=== PATIENT | female | born 1935 | race Caucasian/White ===

== ENCOUNTER 2018-08-12 11:45 | Observation (INO) ==
[2018-08-12] MEDS ORDERED: ENOXAPARIN 100 MG/ML SYRINGE SUBCUT STA (12:27)
[2018-08-12] MEDS ORDERED: ASPIRIN 325 MG TABLET PO STA (12:27)
[2018-08-12 13:02] LABS: Basophils # 0.1 10*3/uL (0.0-0.2); Basophils % 0.6 % (0.0-0.8); Eosinophils # 1.1 10*3/uL (0.0-0.87); Eosinophils % 10.4 % (0.00-10.9); Hematocrit 39.6 VOL% (35.7-47.0); Hemoglobin 12.6 GM/DL (12.0-16.0); Immature Granulocytes % 0.3 %; Immature Granulocytes Absolute 0.03 #; Lymphocytes # 1.6 10*3/uL (1.4-4.0); Lymphocytes % 15.1 % (21.3-54.2); Mean Corpuscular HGB Conc 31.8 GM/DL (32-36); Mean Corpuscular Volume 96.6 FL (87-102); Mean Platelet Volume 10.7 FL (9.6-12.0); Monocytes % 9.4 % (1.7-12.7); Neutrophils % 64.2 % (38.7-73.9); Platelet Count 264 T/CUMM (130-400); Red Cell Distribution Width 13.1 % (9.3-17.3); White Blood Count 10.8 T/CUMM (4-12)
[2018-08-12] MEDS ORDERED: FUROSEMIDE 100 MG/10 ML VIAL IV STA (13:23)
[2018-08-12 13:31] LABS: Alanine Aminotransferase 17 U/L (13-56); Albumin 3.6 G/DL (3.4-5.0); Alkaline Phosphatase 73 U/L (45-117); Aspartate Amino Transferase 15 U/L (0-37); Bilirubin,Total < 0.39 MG/DL (0.2-1.0); Blood Urea Nitrogen 15 MG/DL (7-18); Calcium 9.5 MG/DL (8.5-10.1); Glucose 139 MG/DL (74-106); Osmolality,Calculated 281.4 MOS/KG (273-304)
[2018-08-12] MEDS ORDERED: FUROSEMIDE 40 MG/4 ML VIAL ONE (13:33)
[2018-08-12] MEDS ORDERED: GLUCAGON 1 MG VIAL IM PRN (14:18)
[2018-08-12] MEDS ORDERED: ACETAMINOPHEN 325 MG TABLET PO PRN (14:18)
[2018-08-12] MEDS ORDERED: DEXTROSE 10% 250 ML BAG IV PRN (14:18)
[2018-08-12] MEDS ORDERED: LACTULOSE 20 GM/30 ML UDCUP PO PRN (14:18)
[2018-08-12] MEDS ORDERED: ONDANSETRON 4 MG/2 ML VIAL IV PRN (14:18)
[2018-08-12] MEDS ORDERED: POLYETHYLENE GLYCOL POWDER 17 GM PACK PO PRN (14:27)
[2018-08-12 14:49] LABS: Thyroid Stimulating Hormone 2.25 uIU/ml (0.358-3.74)
[2018-08-12 15:35] LABS: Apearance,Urine Slightly Hazy (Clear); Bilirubin,Urine Negative (Negative); Blood, Urine Negative (Negative); Glucose,Urine (UA) Negative (Negative); Hyaline Casts,Urine 7 /LPF (0-3); Ketones,Urine Negative (Negative); Mucus,Urine Occasional /LPF (Occasional); Nitrite,Urine Negative (Negative); Protein,Urine Negative; RBC,Urine 1 /HPF (0-4); Squamous Epithelial Cell,Urine Occasional /HPF (0-10); Urine Color Colorless (Yellow); Urine Specific Gravity 1.004 (1.001-1.035); Urine Urobilinogen < 2.0 EU/DL (0.2-1.0); WBC,Urine 64 /HPF (0-6)
[2018-08-12] MEDS: INSULIN REGULAR 100 UNIT/ML SUBCUT SCH ×2 (16:49→21:26)
[2018-08-12] MEDS: hydrALAZINE 10 MG TABLET PO SCH (21:26)
[2018-08-12] MEDS: MEMANTINE 5 MG TABLET PO SCH (21:26)
[2018-08-12] MEDS: DONEPEZIL 10 MG TABLET PO SCH (21:26)
[2018-08-13 04:50] LABS: Basophils # 0.1 10*3/uL (0.0-0.2); Basophils % 0.6 % (0.0-0.8); Hematocrit 40.8 VOL% (35.7-47.0); Hemoglobin 12.9 GM/DL (12.0-16.0); Immature Granulocytes % 0.3 %; Immature Granulocytes Absolute 0.03 #; Lymphocytes # 2.1 10*3/uL (1.4-4.0); Lymphocytes % 22.6 % (21.3-54.2); Mean Corpuscular HGB Conc 31.6 GM/DL (32-36); Mean Corpuscular Volume 96.9 FL (87-102); Mean Platelet Volume 11.3 FL (9.6-12.0); Monocytes % 10.5 % (1.7-12.7); Platelet Count 269 T/CUMM (130-400); Red Blood Count 4.21 MC/CUMM (3.8-5.5); White Blood Count 9.4 T/CUMM (4-12)
[2018-08-13 05:15] LABS: Eosinophils 15 % (0-10); Hypochromasia 1+; Lymphocytes 22 % (20-55); Platelet Estimate Adequate; Segmented Neutrophils 49 % (50-85); Total Cells Counted 100
[2018-08-13 05:18] LABS: Calcium 9.8 MG/DL (8.5-10.1); Osmolality,Calculated 284.4 MOS/KG (273-304); Risk Ratio 4.07; VLDL CHOLESTEROL 40.4 MG/DL
[2018-08-13] MEDS ORDERED: amLODIPine 5 MG TABLET PO SCH (09:00)
[2018-08-13] MEDS: INSULIN REGULAR 100 UNIT/ML SUBCUT SCH ×4 (09:34→23:05)
[2018-08-13] MEDS: SERTRALINE 50 MG TABLET PO SCH (09:34)
[2018-08-13] MEDS: METOPROLOL SUCCINATE XL 25 MG TABLET PO SCH (09:34)
[2018-08-13] MEDS: PANTOPRAZOLE 40 MG TABLET PO SCH (09:35)
[2018-08-13] MEDS: amLODIPine 10 MG TABLET PO SCH (09:35)
[2018-08-13] MEDS: hydrALAZINE 10 MG TABLET PO SCH ×3 (09:35→23:06)
[2018-08-13] MEDS: VENLAFAXINE 75 MG TABLET PO SCH (09:35)
[2018-08-13] MEDS: ASPIRIN EC 81 MG TABLET PO SCH (09:35)
[2018-08-13] MEDS: LEVOTHYROXINE 50 MCG TABLET PO SCH (09:35)
[2018-08-13] MEDS: ENOXAPARIN 40 MG/0.4 ML SYRINGE SUBCUT SCH (12:20)
[2018-08-13] MEDS: AMOXICILLIN/CLAV 500 MG TABLET PO SCH ×2 (17:25→23:07)
[2018-08-13] MEDS: MEMANTINE 5 MG TABLET PO SCH (23:06)
[2018-08-13] MEDS: DONEPEZIL 10 MG TABLET PO SCH (23:06)
[2018-08-14 04:53] LABS: Basophils # 0.1 10*3/uL (0.0-0.2); Basophils % 0.8 % (0.0-0.8); Eosinophils # 0.8 10*3/uL (0.0-0.87); Eosinophils % 8.6 % (0.00-10.9); Hematocrit 39.8 VOL% (35.7-47.0); Hemoglobin 12.1 GM/DL (12.0-16.0); Immature Granulocytes % 0.5 %; Immature Granulocytes Absolute 0.05 #; Lymphocytes # 2.2 10*3/uL (1.4-4.0); Lymphocytes % 23.5 % (21.3-54.2); Mean Corpuscular HGB Conc 30.4 GM/DL (32-36); Mean Corpuscular Volume 98.8 FL (87-102); Mean Platelet Volume 11.1 FL (9.6-12.0); Monocytes % 10.8 % (1.7-12.7); Neutrophils % 55.8 % (38.7-73.9); Platelet Count 268 T/CUMM (130-400); Red Blood Count 4.03 MC/CUMM (3.8-5.5); Red Cell Distribution Width 12.9 % (9.3-17.3); White Blood Count 9.3 T/CUMM (4-12)
[2018-08-14 05:24] LABS: Calcium 9.6 MG/DL (8.5-10.1); Osmolality,Calculated 286.3 MOS/KG (273-304)
[2018-08-14] MEDS: LEVOTHYROXINE 50 MCG TABLET PO SCH (06:48)
[2018-08-14] MEDS: INSULIN REGULAR 100 UNIT/ML SUBCUT SCH ×2 (09:18→12:25)
[2018-08-14] MEDS: ENOXAPARIN 40 MG/0.4 ML SYRINGE SUBCUT SCH (09:18)
[2018-08-14] MEDS: AMOXICILLIN/CLAV 500 MG TABLET PO SCH (09:19)
[2018-08-14] MEDS: ASPIRIN EC 81 MG TABLET PO SCH (09:19)
[2018-08-14] MEDS: VENLAFAXINE 75 MG TABLET PO SCH (09:19)
[2018-08-14] MEDS: SERTRALINE 50 MG TABLET PO SCH (09:19)
[2018-08-14] MEDS: hydrALAZINE 10 MG TABLET PO SCH (09:19)
[2018-08-14] MEDS: PANTOPRAZOLE 40 MG TABLET PO SCH (09:19)
[2018-08-14] MEDS: METOPROLOL SUCCINATE XL 25 MG TABLET PO SCH (09:19)
[2018-08-14] MEDS: amLODIPine 10 MG TABLET PO SCH (09:19)
[2018-08-14] MEDS ORDERED: guaiFENesin 200 MG/10 ML UDCUP PO PRN (10:54)
[2018-08-14 12:19] VITALS: BP 150/72
== END 2018-08-14 13:00 ==
LOC: EDBD → EDUNIT# → N.ED 11:45 → N.EDINP 11:45 → SUATTDRO 14:18 → N.2E 15:29
PROVIDERS: ADMIT Hospitalist; ATTEND Internal Medicine

== ENCOUNTER 2019-02-06 11:12 | Observation (INO) ==
[2019-02-06] MEDS ORDERED: ONDANSETRON 4 MG/2 ML VIAL IV STA (11:51)
[2019-02-06] MEDS ORDERED: ASPIRIN 325 MG TABLET PO STA (11:51)
[2019-02-06 13:00] LABS: Basophils # 0.1 10*3/uL (0.0-0.2); Basophils % 0.8 % (0.0-0.8); Eosinophils # 0.2 10*3/uL (0.0-0.87); Hematocrit 44.8 VOL% (35.7-47.0); Immature Granulocytes % 0.5 %; Immature Granulocytes Absolute 0.05 #; Lymphocytes # 1.5 10*3/uL (1.4-4.0); Lymphocytes % 14.7 % (21.3-54.2); Mean Corpuscular HGB Conc 31.3 GM/DL (32-36); Mean Corpuscular Volume 98.2 FL (87-102); Mean Platelet Volume 11.1 FL (9.6-12.0); Monocytes % 7.8 % (1.7-12.7); Neutrophils % 74.2 % (38.7-73.9); Platelet Count 248 T/CUMM (130-400); Red Blood Count 4.56 MC/CUMM (3.8-5.5); Red Cell Distribution Width 13.2 % (9.3-17.3); White Blood Count 9.9 T/CUMM (4-12)
[2019-02-06 13:09] LABS: INR 0.9; PT Patient Result 10.2 SECS (9.6-12.2); Partial Thromboplastin Time 27.7 SECS (20.8-36.0)
[2019-02-06] MEDS: NITROGLYCERIN SL 0.4 MG TABLET SL PRN ×2 (13:14→15:30)
[2019-02-06 13:25] LABS: Albumin 3.4 G/DL (3.4-5.0); Bilirubin,Total 0.9 MG/DL (0.2-1.0); Calcium 9.1 MG/DL (8.5-10.1); Osmolality,Calculated 282.5 MOS/KG (273-304); Total Protein 7.5 G/DL (6.4-8.3)
[2019-02-06 13:42] LABS: Apearance,Urine CLEAR (Clear); Bilirubin,Urine Negative (Negative); Blood, Urine Negative (Negative); Glucose,Urine (UA) Negative (Negative); Ketones,Urine Negative (Negative); Mucus,Urine Occasional /LPF (Occasional); Nitrite,Urine Negative (Negative); Protein,Urine Negative; RBC,Urine 1 /HPF (0-4); Squamous Epithelial Cell,Urine Occasional /HPF (0-10); Urine Color Yellow (Yellow); Urine Specific Gravity 1.015 (1.001-1.035); WBC,Urine 2 /HPF (0-6)
[2019-02-06] MEDS ORDERED: ACETAMINOPHEN 325 MG TABLET PO PRN (16:08)
[2019-02-06] MEDS ORDERED: ONDANSETRON 4 MG/2 ML VIAL IV PRN (16:08)
[2019-02-06] MEDS ORDERED: GLUCAGON 1 MG VIAL IM PRN (16:12)
[2019-02-06] MEDS ORDERED: DEXTROSE 50% 25 GM/50 ML VIAL IV PRN (16:12)
[2019-02-06] MEDS: ENOXAPARIN 100 MG/ML SYRINGE SUBCUT SCH (18:14)
[2019-02-06] MEDS: INSULIN REGULAR 100 UNIT/ML SUBCUT SCH ×2 (18:14→21:14)
[2019-02-06] MEDS: FUROSEMIDE 40 MG/4 ML VIAL IV SCH (18:15)
[2019-02-07] MEDS: NITROGLYCERIN SL 0.4 MG TABLET SL PRN (02:12)
[2019-02-07 05:00] LABS: Basophils # 0.1 10*3/uL (0.0-0.2); Eosinophils # 0.3 10*3/uL (0.0-0.87); Eosinophils % 4.1 % (0.00-10.9); Hemoglobin 13.5 GM/DL (12.0-16.0); Immature Granulocytes % 0.3 %; Immature Granulocytes Absolute 0.02 #; Lymphocytes # 2.2 10*3/uL (1.4-4.0); Lymphocytes % 31.5 % (21.3-54.2); Mean Corpuscular HGB Conc 31.4 GM/DL (32-36); Mean Corpuscular Volume 97.3 FL (87-102); Mean Platelet Volume 11.6 FL (9.6-12.0); Monocytes % 9.5 % (1.7-12.7); Neutrophils % 53.6 % (38.7-73.9); Platelet Count 215 T/CUMM (130-400); Red Blood Count 4.42 MC/CUMM (3.8-5.5); Red Cell Distribution Width 13.3 % (9.3-17.3); White Blood Count 6.9 T/CUMM (4-12)
[2019-02-07 05:34] LABS: Calcium 8.8 MG/DL (8.5-10.1); Osmolality,Calculated 287.1 MOS/KG (273-304)
[2019-02-07] MEDS: INSULIN REGULAR 100 UNIT/ML SUBCUT SCH ×4 (07:51→21:12)
[2019-02-07] MEDS ORDERED: FUROSEMIDE 40 MG/4 ML VIAL IV SCH ×2 (08:00→09:00)
[2019-02-07 08:27] LABS: Albumin 3.4 G/DL (3.4-5.0); Bilirubin,Direct 0.21 MG/DL (0.0-0.20); Bilirubin,Indirect 0.5 MG/DL (0.0-1.0); Bilirubin,Total 0.7 MG/DL (0.2-1.0); Total Protein 6.9 G/DL (6.4-8.3)
[2019-02-07] MEDS: PANTOPRAZOLE 40 MG TABLET PO SCH (09:08)
[2019-02-07] MEDS: FUROSEMIDE 40 MG/4 ML VIAL IV SCH ×2 (09:08→15:27)
[2019-02-07] MEDS: ASPIRIN EC 81 MG TABLET PO SCH (10:37)
[2019-02-07] MEDS: ISOSORBIDE MONONITRATE 30 MG TABLET PO SCH (10:38)
[2019-02-07] MEDS: carvediloL 3.125 MG TABLET PO SCH ×2 (10:38→21:12)
[2019-02-07 13:53] LABS: Hepatitis B Core IgM Quant < 0.05 Index; Hepatitis B Surface Ag Quant < 0.10 Index; Hepatitis B Surface Ag Result Negative (Negative); Hepatitis C Virus Ab Quant 0.09 Index; Hepatitis C Virus Ab Result Negative (Negative)
[2019-02-07] MEDS: ENOXAPARIN 100 MG/ML SYRINGE SUBCUT SCH (15:30)
[2019-02-07] MEDS ORDERED: ATORVASTATIN 40 MG TABLET PO SCH (21:00)
[2019-02-07] MEDS ORDERED: carvediloL 3.125 MG TABLET PO SCH (21:00)
[2019-02-08 05:19] LABS: Basophils # 0.1 10*3/uL (0.0-0.2); Basophils % 0.8 % (0.0-0.8); Eosinophils # 0.4 10*3/uL (0.0-0.87); Eosinophils % 5.6 % (0.00-10.9); Hematocrit 43.5 VOL% (35.7-47.0); Hemoglobin 13.9 GM/DL (12.0-16.0); Immature Granulocytes % 0.3 %; Immature Granulocytes Absolute 0.02 #; Lymphocytes % 28.1 % (21.3-54.2); Mean Corpuscular Volume 97.1 FL (87-102); Mean Platelet Volume 11.6 FL (9.6-12.0); Monocytes % 10.3 % (1.7-12.7); Neutrophils % 54.9 % (38.7-73.9); Platelet Count 223 T/CUMM (130-400); Red Blood Count 4.48 MC/CUMM (3.8-5.5); Red Cell Distribution Width 13.4 % (9.3-17.3); White Blood Count 7.2 T/CUMM (4-12)
[2019-02-08 05:42] LABS: Albumin 3.4 G/DL (3.4-5.0); Bilirubin,Direct 0.14 MG/DL (0.0-0.20); Bilirubin,Indirect 0.9 MG/DL (0.0-1.0); Total Protein 7.2 G/DL (6.4-8.3)
[2019-02-08 05:44] LABS: Calcium 8.7 MG/DL (8.5-10.1); Osmolality,Calculated 283.5 MOS/KG (273-304)
[2019-02-08] MEDS ORDERED: ASPIRIN EC 81 MG TABLET PO SCH (09:00)
[2019-02-08] MEDS ORDERED: ISOSORBIDE MONONITRATE 30 MG TABLET PO SCH ×2 (09:00→10:47)
[2019-02-08] MEDS: INSULIN REGULAR 100 UNIT/ML SUBCUT SCH ×4 (09:47→21:59)
[2019-02-08] MEDS: PANTOPRAZOLE 40 MG TABLET PO SCH (09:48)
[2019-02-08] MEDS: carvediloL 3.125 MG TABLET PO SCH ×2 (09:48→21:58)
[2019-02-08] MEDS: ASPIRIN EC 81 MG TABLET PO SCH (09:48)
[2019-02-08] MEDS: ISOSORBIDE MONONITRATE 30 MG TABLET PO SCH (09:48)
[2019-02-08] MEDS: FUROSEMIDE 40 MG/4 ML VIAL IV SCH ×2 (09:49→16:43)
[2019-02-08] MEDS: NITROGLYCERIN SL 0.4 MG TABLET SL PRN (10:02)
[2019-02-08] MEDS: ENOXAPARIN 100 MG/ML SYRINGE SUBCUT SCH (16:42)
[2019-02-09] MEDS: PANTOPRAZOLE 40 MG TABLET PO SCH (09:52)
[2019-02-09] MEDS: INSULIN REGULAR 100 UNIT/ML SUBCUT SCH ×3 (09:53→16:12)
[2019-02-09] MEDS: ASPIRIN EC 81 MG TABLET PO SCH (09:53)
[2019-02-09] MEDS: carvediloL 3.125 MG TABLET PO SCH (09:53)
[2019-02-09] MEDS: FUROSEMIDE 40 MG/4 ML VIAL IV SCH ×2 (09:53→16:12)
[2019-02-09] MEDS ORDERED: ASCORBIC ACID 500 MG TABLET PO SCH (10:30)
[2019-02-09] MEDS: ENOXAPARIN 100 MG/ML SYRINGE SUBCUT SCH (16:12)
[2019-02-09 16:24] VITALS: BP 155/61
== END 2019-02-09 17:00 ==
LOC: EDBD → EDUNIT# → N.ED 11:12 → N.EDINP 11:12 → SUATTDRO 16:08 → N.TELEN 16:24
PROVIDERS: ADMIT Internal Medicine; ATTEND Emergency Medicine